=== PATIENT | female | born 1980 | race Native Hawaiian/Other Pacific Islander ===

== ENCOUNTER 2017-10-03 06:56 | Day surgery (SDC) | payer OTHER ==
[2017-09-27 11:31] VITALS: BMI 28.3
[2017-10-03 08:21] LABS: HEMOGLOBIN 12.2 g/dL (12.0-16.0); MEAN CELL VOLUME 88.7 fl (81.0-99.0); MEAN CORPUSCULAR HEMOGLOBIN 29.3 pg (27.0-31.0); RBC 4.18 Mil/uL (3.80-5.20); RED CELL DISTRIBUTION WIDTH 14.2 % (11.5-14.5); WHITE BLOOD COUNT 7.9 K/uL (4.8-10.8)
[2017-10-03] MEDS ORDERED: Rocuronium 10 mg/ml (5 ml) ONE (10:41)
[2017-10-03] MEDS ORDERED: ePHEDrine 50 mg/ml Inj ONE (10:41)
[2017-10-03] MEDS ORDERED: Propofol 10 mg/ml Inj (20 ML) ONE (10:41)
[2017-10-03] MEDS ORDERED: Succinylcholine 200 mg/10 ml Inj IV ONE (10:41)
[2017-10-03] MEDS ORDERED: Sevoflurane - Inhalation Anesthetic Liq (250 ml) ONE (12:28)
[2017-10-03] MEDS ORDERED: Midazolam 2 MG/2 ML VIAL ONE (12:55)
[2017-10-03] MEDS ORDERED: Lactated Ringer's 1,000 ML IV ONE ×4 (13:27→17:45)
[2017-10-03] MEDS ORDERED: Bupivacaine HCl 0.25% PF (30 ml) Inj IJ ONE ×3 (13:49→14:00)
[2017-10-03] MEDS ORDERED: Dexamethasone 4 mg/1 ml ONE (14:03)
[2017-10-03] MEDS ORDERED: Desflurane Inhalation Anesthetic Liq (240 ml) ONE (14:30)
[2017-10-03] MEDS ORDERED: Neostigmine 1:1000 (1 mg/ml) Inj ONE (15:04)
[2017-10-03] MEDS ORDERED: Ropivacaine 0.5% 30ML IV ONE (15:22)
[2017-10-03] MEDS ORDERED: HYDROmorphone 1 mg/ml ISec IVP PRN (15:44)
[2017-10-03] MEDS ORDERED: Oxycodone/Acetaminophen 5/325 mg Tab PO PRN (15:44)
[2017-10-03] MEDS ORDERED: Lactated Ringer's 1,000 ML IV SCH ×2 (15:45→16:30)
--- NOTE | 2017-10-03 16:47 | PCM.ANESB5 ---
Transverse Abdominis Block - Transverse Abdominis Plane Date of Procedure: 10/03/17 Anesthesiologist: Kristin Pre-Procedure Diagnosis: Endometriosis Post-Procedure Diagnosis: Same Procedure Performed: Transverse Abdominis Plane Nerve Block Left, Transverse Abdominis Plane Nerve Block Right - Procedure Transverse Abdominis Plane Nerve Block: The procedure was explained to the patient that it is for post-operative pain management and would be performed after surgery. Consent was obtained prior to surgery after a thorough discussion with the patient regarding the benefits and possible complications of transverse abdominis plane block. After the surgery had concluded and before the patient emerged from general anesthesia, time-out was held with the circulating nurse to re-confirm the appropriate block. With the patient in supine position, the ultrasound probe was placed transverse to the abdominal wall at the mid-axillary line above the iliac crest of the appropriate side. The skin, subcutaneous tissue, fat, external oblique muscle, internal oblique muscle, and the transverse abdominis muscle were identified. The general area of the block site was then prepped with Betadine three times. At this point, a # 21-gauge Stimuplex 4-inch needle was inserted posterior to and in plane with the ultrasound probe and directed anteriorly. Needle was advanced under direct ultrasound visualization until it reached the plane between the internal oblique and transverse abdominis muscles. After appropriate placement, 2mL of local anesthetic solution was injected. When the transverse abdominis plane was observed expanding in an ellipsoid way, the rest of the solution was slowly injected. A total of _30 mL of _0.25____ % ____ ropivicaine was used for this block. The needle was then removed and sterile dressing was applied. Similarly, the same procedure was performed on the other side using the same medications. The patient had stable vital signs throughout and had no untoward complications after emergence from general anesthesia in the recovery room.
[2017-10-03] MEDS: HYDROmorphone 0.5 mg/0.5 ml ISec IVP PRN ×2 (17:10→17:28)
[2017-10-03 19:01] VITALS: RESP 16
--- NOTE | 2017-10-03 19:17 | CP.PCM.PN ---
Subjective - Date & Time of Evaluation Date of Evaluation: 10/03/17 Time of Evaluation: 18:30 - Subjective Subjective: Anesthesia Note Called by Same Day, pt s/p robotic endometriosis resection now with desaturation (60s without O2, went up to 80s with NC 2L). Called to evaluate. Pt's other vitals WNL 102/62, [place] 72. Pt tired but awake, able to answer questions. Says chest feels "tight". Auscultation: left side clear but right side with crackles especially loud in the middle lobe region. Pt also has a cough that is not yet productive but sounds course and slightly phlegmy. Pt encouraged to take some deep breaths upon which her saturation increased to low 90s at most. Pt states she has no pulmonary hx, no hx of asthma, no hx of smoking, and that she did not have this cough prior to surgery. Desaturation may be due to a number of causes in this scenario ranging from atelectasis, to mucus plug, to hypoventilation (somnambulance) to even PE. Pt will need at the very least a CXR and possibly an ABG. Informed Dr Holt and decision made to send pt to ER for imaging and further studies. Objective - Vital Signs/Intake and Output Vital Signs (last 24 hours): Temp Pulse Resp BP Pulse Ox 97.1 F L 86 18 116/73 93 L 10/03/17 18:15 10/03/17 18:15 10/03/17 18:15 10/03/17 18:15 10/03/17 18:15 Intake and Output: 10/03/17 10/03/17 06:59 18:59 Intake Total 3700 Output Total 200 Balance 3500 - Medications Medications: Current Medications Hydromorphone HCl (Dilaudid) 2 mg IVP Q3H PRN PRN Reason: Pain, severe (8-10) Lactated Ringer's (Lactated Ringer's) 1,000 mls @ 100 mls/hr IV .Q10H GILBERT Lactated Ringer's (Lactated Ringer's) 1,000 mls @ 250 mls/hr IV .Q4H GILBERT Ketorolac Tromethamine (Toradol) 30 mg IVP Q6H GILBERT Ondansetron HCl (Zofran Inj) 4 mg IVP Q6 PRN PRN Reason: Nausea/Vomiting Oxycodone/Acetaminophen (Percocet 5/325 Mg Tab) 2 tab PO Q4H PRN PRN Reason: Pain, moderate (4-7) Stop: 10/06/17 15:45 - Labs Labs: 10/03/17 07:40
[2017-10-03 19:53] VITALS: BP 121/64; PULSE 77; TEMP 97.4; O2SAT 90
--- NOTE | 2017-10-12 11:36 | PCM.OP ---
Operative Report - Operative Report Date of Surgery/Procedure: 10/03/17 Time of Surgery/Procedure: 12:00 Surgeon: Dr. Enrrique Reyes Special Librarian: Dr. Jason Holt Anesthesia/Sedation: general/Dr. Kc Pre-Operative Diagnosis: abdominal pain and endometriosis Post-Operative Diagnosis: same Indication for Surgery: involvement of the rectum Operative Findings: as above Procedure/Operation Description: 1-Excision perirectal endometriosis. Brief History: This 36 year old woman was already brought to the operating room by Dr. Holt and the procedure had been initated when he noticed endometriosis invovlement of the rectum . Intraoperative consultation was obtained. Description of the procedure: The operation had already been intiated by Dr. Holt (separate dictation Dr. Holt). After taking control of the robotic console the lesion in question was circumscribed with electrocautery and excided en-bloc with blint and sharp disection while maintianing the integrity of the rectal wall. The lesion was appropriately marked and sent to pathology as a separate specimen. The operation was then turned over to Dr. Holt ( separate dictation). Estimated Blood Loss: 2 cc Complications: none Discharge & Condition: stable
--- NOTE | 2017-10-22 19:00 | OP ---
PROCEDURE DATE: 10/03/2017 SURGEON: Jason Holt M.D. CNC SERVICE ENGINEER: Enrrique Reyes M.D. from General Surgery. ANESTHESIA: General. ANESTHESIOLOGIST: Kenroy Foster MD PREOPERATIVE DIAGNOSES: 1. Incapaciting pelvic pain. 2. Incapacitating abdominal pain. 3. Abnormal uterine bleeding. 4. Suspected pelvic endometriosis. 5. History of previous failed medical and surgical therapies. 6. Gastrointestinal and genitourinary symptoms. 7. Rule out interstitial cystitis. 8. Myoma of the uterus. 9. Adenomyosis. POSTOPERATIVE DIAGNOSES: 1. Incapacitating pelvic pain. 2. Incapacitating abdominal pain. 3. Abnormal uterine bleeding. 4. Suspected pelvic endometriosis. 5. History of previous failed medical and surgical therapies. 6. Gastrointestinal and genitourinary symptoms. 7. Myoma of the uterus. 8. Adenomyosis. 9. Confirmed pelvic endometriosis stage III. OPERATION PERFORMED: 1. Examination under anesthesia. 2. Video-assisted hysteroscopy. 3. Cystoscopy with bilateral ureteral catheterization. 4. Robotic da Ernst operative laparoscopy. 5. Bilateral Robotic ureterolysis. 6. Excision of endometriosis with multiple peritoneal biopsies. 7. Myomectomy. 8. Hysteroscopy ANTIBIOTICS: Prophylactic antibiotics were used. INTAKE AND OUTPUT: Adequate. ESTIMATED BLOOD LOSS: Less than 100 mL. FINDINGS: Genitalia: normal, external genitalia cervix normal without lesions or polyps. Hysteroscopy : showed normal cavity without any evidence of polyps. Cystoscopy to rule out endometriosis of the bladder mucosa and also interstitial cystitis . Normal bladder. No evidence of stone, trigonitis or cystitis. Positive bilateral jet flow visualized. Bilateral ureteral catheterization with injection of dye performed. Laparoscopic upper abdomen was normal. Gallbladder was normal. Liver edges appeared to be normal. Ascending colon and transverse colon were normal. There were evidence of endometriosis in multiple areas of the pelvis including the left pelvic sidewall, the right pelvic sidewall, the posterior cervix, uterosacral ligaments, and both right and left perirectal spaces. Both fallopian tubes appeared to be normal. There were also inflammatory changes in the posterior aspect of the uterus, and there was also a posterior fibroid in the uterus. CONSENT: The patient had been thoroughly evaluated and counseled regarding the pros and cons of the procedure, the reasonable alternatives, and possible complications. She understands and accepts all the risks involved and appropriate literature was shared with the patient. The patient understands all the risks with regards to endometriosis surgery and accepted all the risks involved, and all the questions have been answered to her satisfaction. SAMPLES OBTAINED: 1.Left periureteral endometriosis, 2. posterior cervical endometriosis, 3. anterior rectal endometriosis, 4. left cul-de-sac endometriosis, 5.left pelvic side wall endometriosis, 6.left periurethral endometriosis, 7.right periurethral endometriosis, 8.right uterosacral endometriosis, 9.left cul-de-sac endometriosis 10. uterine fibroid. DESCRIPTION OF PROCEDURE: After adequate anesthesia was obtained, the patient was placed in the dorsal lithotomy position with extreme care not to hyperextend or hyperflex the hips. She was prepped and draped and the surgeons were gowned and gloved. At this point, a time-out was taken according to the hospital policy and the procedure was started. At this point we performed the cystoscopy cystoscope was inserted into the bladder under direct visualization and the bladder was visualized, appearing to be free of stones, any lesions, trigonitis or endometriosis of the bladder or interstitial cystitis. At this point we performed the ureteral stenting and injection of dye. Both ureteral ostia were in the normal anatomical position. At this point, the left ureter was catheterized using a 5-Swiss open-ended catheter all the way to the distal ureter and 5 mL of IC-Green were injected. The catheter was removed and then the contralateral ureter was then cannulated with a 5-Swiss open-ended catheter and 5 mL of IC-Green were injected. At this point, the cystoscope was removed. At this point we performed h the Hysteroscopy A speculum was placed in the vagina. The anterior lip of the cervix was grasped and the cervix was dilated. The uterine cavity appeared to be normal in size with no evidence of endometritis or adenomyosis changes and no other abnormalities were seen. At this point we started the Robotic Laparoscopy At this point, after re-gowning and re-gloving, the attention was on the abdominal part, where an open laparoscopy was performed by making an incision and entering the fascia in a sharp fashion, and the peritoneum in a blunt fashion, a cannula was then inserted, the abdomen was insufflated. Under direct visualization, three additional ports were inserted, left upper quadrant, left mid quadrant, and right upper quadrant. At this point, the da Ernst Xi robot was brought into the field and docked and the procedure was commenced. As per description above, multiple areas of endometriosis were identified. There was also a fibroid in the posterior aspect of the uterus. At this point we started the excision of endometriosis and bilateral ureterolysis. At this point, attention was on the left hand side where the ovary was elevated, and evidence of endometriosis was visible on the left pelvic side wall. Fluorescence technology was used to visualize the ureter, the retroperitoneal space was entered and with great care the ureter was identified and lateralized and the peritoneum medialized, and a [id number] excision was performed dissecting the peritoneum from the left pelvic side wall. A large area of peritoneum containing endometriosis was then excised. At this point, attention was on the ovarian fossa where after identifying the uterine vessels, the peritoneum was grasped and again an area of peritoneum was progressively dissected in the [id number] fashion containing endometriosis, and dissected off the operative level of excision being the utero-ovarian ligament and all the way down to the left utero-sacral ligament. The sample was sent to Pathology. The dissection continuing the posterior aspect of the cervix where after dissecting the peritoneum posterior aspect of the cervix, a full dissection was performed and then entering the vascular space of the rectovaginal space. An area of peritoneum was then was excised from the left cul-de-sac. At this point, attention was on the right hand side, where after elevating the ovary. Again, the ureter was identified. The peritoneum was entered in a sharp fashion, and a progressive dissection was performed, lateralizing the ureter and dissecting in a [id number] fashion, dissecting the peritoneum containing endometriosis and lysing the right ureter. Again, the right ovarian fossa was then approached with a full dissection of peritoneum, going from the right utero-ovarian ligament all the way down to the right utero-sacra. There was an area of suspicious endometriosis by the perirectal area, and from General Surgery was asked to excise that, and he will dictate that procedure separately. At this point, attention was on the posterior aspect of the uterus where the fibroid was identified. It was pedunculated fibroid, so after placing an Endoloop around it, the base of the fibroid was excised and the fibroid was removed and sent to pathology through a 12 mm port. At this point, it was checked for hemostasis, there appeared to be excellent, and all the areas suspicious of endometriosis were fully excised, and there were some areas of inflammation in the posterior aspect of the uterus, which were not endometriosis, just inflammatory changes, and the peritoneum in that area was vaporized utilizing the J-Plasma device. After this was done, it was checked for hemostasis, there appeared to be excellent. At this point, the da Ernst robot was undocked. The abdomen was desufflated. The instruments were removed. The incisions were closed with 0 PDS for the fascia and 4-0 Monocryl for the skin. At the end of the procedure, all tapes and instrument counts were correct. The patient tolerated the procedure well, was taken to the recovery room in excellent condition. Jason Holt MD MTDKaroline
== END 2017-10-03 19:30 | disposition still patient (30) ==
LOC: H.OPSURG 06:56
PROVIDERS: ATTEND Obstetrics & Gynecology Reproductive Endocrinology
DX: N80.0 Endometriosis of uterus (principal); E11.9 Type 2 diabetes mellitus without complications; E03.9 Hypothyroidism, unspecified; N80.5 Endometriosis of intestine; D25.9 Leiomyoma of uterus, unspecified
CPT/HCPCS: 36415; 45171; 58558; 58662; 64488; 82948; 85027; 86850; 86900; 88305; C1729; J0131; J0330; J0690; J1100; J1170; J1885; J2001; J2250; J2405; J2704; J2710; J2765; J3010; J7030; J7040; J7120

== ENCOUNTER 2017-10-03 20:02 | Observation (INO) | payer OTHER ==
[2017-10-03 20:02] VITALS: BMI 28.3
[2017-10-03 20:58] LABS: BASO % 0.1 % (0.0-2.0); LYMPH # 0.7 K/uL (1.0-4.3); LYMPH % 5.3 % (20.0-40.0); MEAN CELL VOLUME 88.9 fl (81.0-99.0); MEAN CORPUSCULAR HGB CONC 32.6 g/dL (33.0-37.0); MEAN PLATELET VOLUME 9.4 fl (7.2-11.7); MONO # 0.1 K/uL (0.0-0.8); MONO % 0.8 % (0.0-10.0); NEUT # 13.3 K/uL (1.8-7.0); NEUT % 93.8 % (50.0-75.0); PLATELET COUNT 201 K/uL (130-400); RBC 3.81 Mil/uL (3.80-5.20); RED CELL DISTRIBUTION WIDTH 14.1 % (11.5-14.5); WHITE BLOOD COUNT 14.1 K/uL (4.8-10.8)
[2017-10-03 21:07] LABS: ALB/GLOB RATIO 1.2 (1.0-2.1); ALBUMIN 3.4 g/dL (3.5-5.0); ALT/SGPT 35 U/L (9-52); AST/SGOT 27 U/L (14-36); BLOOD UREA NITROGEN 7 mg/dl (7-17); CALCIUM 7.9 mg/dL (8.4-10.2); GFR AFRICAN-AMERICAN > 60; GFR NON-AFRICAN AMERICAN > 60
[2017-10-03 21:11] LABS: INR 1.1 (0.9-1.2); PARTIAL THROMBOPLASTIN TIME 29.8 Seconds (25.6-37.1)
[2017-10-03 21:19] LABS: B-TYPE NATRIURETIC PEPTIDE 153 pg/ml (0-450)
[2017-10-03] MEDS ORDERED: Morphine 4 MG/ML VIAL IVP STA (21:32)
[2017-10-03] MEDS ORDERED: Morphine 4 MG/ML VIAL ONE (21:34)
[2017-10-03 21:40] LABS: BANDS 1 % (0-2); LYMPHOCYTE 6 % (20-50); MONOCYTE 4 % (0-10); NEUTROPHIL 89 % (42-75); TOTAL CELLS COUNTED 100
[2017-10-03 21:41] LABS: ANISOCYTOSIS SLIGHT; HYPOCHROMIC SLIGHT; PLATELET ESTIMATE NORMAL (NORMAL); TOXIC GRANULATION PRESENT
--- NOTE | 2017-10-03 21:43 | ED PDOC ---
HPI: SOB/CHF/COPD Time Seen by Provider: 10/03/17 20:13 Chief Complaint (Nursing): Shortness Of Breath Chief Complaint (Provider): shortness of breath History Per: Patient History/Exam Limitations: no limitations Onset/Duration Of Symptoms: Hrs (3), Persistent Additional Complaint(s): Post op gynecological surgery and while in PACU became hypoxic with mild shortness of breath. Mild cough nonproductive. Currently reports mild abdominal pain. Past Medical History Reviewed: Historical Data, Nursing Documentation, Vital Signs Vital Signs: Last Vital Signs Temp 98 F 10/04/17 00:06 Pulse 88 10/04/17 00:06 Resp 18 10/04/17 00:06 BP 105/68 10/04/17 00:06 Pulse Ox 94 L 10/04/17 00:06 - Medical History PMH: Hypothyroidism Denies: Asthma, Chronic Kidney Disease - Surgical History Other surgeries: Endometriosis - Family History Family History: States: No Known Family Hx - Social History Current smoker - smoking cessation education provided: No - Home Medications Home Medications: Ambulatory Orders Medication Instructions Recorded Vit Calc,Iron,Folic 1 tab PO DAILY 09/27/17 [ Vitamins] metFORMIN [glucOPHAGE] 500 mg PO QID 09/27/17 - Allergies Allergies/Adverse Reactions: Allergies Allergy/AdvReac Type Severity Reaction Status Date / Time No Known Allergies Allergy Verified 10/03/17 20:04 Review of Systems ROS Statement: Except As Marked, All Systems Reviewed And Found Negative (and as per HPI) Constitutional: Positive for: Weakness Respiratory: Positive for: Cough, Shortness of Breath Gastrointestinal: Positive for: Abdominal Pain Physical Exam - Reviewed Nursing Documentation Reviewed: Yes Vital Signs Reviewed: Yes - Physical Exam Appears: Positive for: Non-toxic, No Acute Distress (but tired appearing) Head Exam: Positive for: ATRAUMATIC, NORMOCEPHALIC Skin: Positive for: Warm, Dry, Pallor Eye Exam: Positive for: EOMI, PERRL ENT: Positive for: Pharynx Is (clear) Neck: Positive for: Painless ROM, Supple Cardiovascular/Chest: Positive for: Regular Rate, Rhythm. Negative for: Murmur Respiratory: Positive for: Rales (RIGHT sided). Negative for: Accessory Muscle Use, Wheezing, Respiratory Distress Gastrointestinal/Abdominal: Positive for: Soft. Negative for: Distended Back: Positive for: Normal Inspection. Negative for: Decreased ROM Extremity: Positive for: Normal ROM. Negative for: Deformity Lymphatic: Negative for: Adenopathy Neurologic/Psych: Positive for: Alert. Negative for: Motor/Sensory Deficits - Laboratory Results Result Diagrams: 10/03/17 20:42 10/03/17 20:42 - ECG ECG: Positive for: Interpreted By Me ECG Rhythm: Positive for: Normal QRS (but low voltage), Normal ST Segment, Sinus Rhythm O2 Sat by Pulse Oximetry: 94 Pulse Ox Interpretation: Abnormal (4L NC applied with improvement to 96) - Radiology X-Ray Interpretation: Other (interstitial markings RIGHT side) - Progress ED Course And Treament: JIMI Holt Wildlife Forensic Geneticist, Dr Lynne for admission, and pt and family findings and plan of care. Disposition - Clinical Impression Clinical Impression: Fluid overload - Disposition Disposition Time: 21:00 Condition: FAIR - Pt Status Changed To: Hospital Disposition Of: Observation - POA Present On Arrival: None
--- NOTE | 2017-10-04 00:55 | CP.PCM.HP ---
History of Present Illness - History of Present Illness History of Present Illness: Anesthiologist: Dr Arriaza Chief Complaint: SOB The patient was seen and evaluated On the Telemetry Unit HPI: The Hx is obtained from the Patient and after review of the medical records. 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 absent: Chills, Fever, Lethargy - EENT Eyes: Requires Corrective Lenses. absent: Blurred Vision, Diplopia, Floaters, Loss of Peripheral Vision Ears: absent: Decreased Hearing, Ear Discharge, Tinnitus Nose/Mouth/Throat: absent: Epistaxis, Nasal Congestion, Sinus Pain, Sinus Pressure - Cardiovascular Cardiovascular: Dyspnea. absent: Chest Pain, Edema, Leg Edema - Respiratory Respiratory: Cough, Dyspnea. absent: Wheezing - Gastrointestinal Gastrointestinal: Abdominal Pain. absent: Constipation, Diarrhea, Nausea, Vomiting - Genitourinary Genitourinary: absent: Dysuria, Urinary Frequency - Musculoskeletal Musculoskeletal: absent: Arthralgias, Muscle Weakness - Integumentary Integumentary: absent: Pruritus, Rash, Skin Ulcer, Sores, Striae, Swelling - Neurological Neurological: absent: Confusion, Focal Weakness, Loss of Vision, Weakness - Psychiatric Psychiatric: absent: Anxiety, Depression, Panic Attacks - Endocrine Endocrine: absent: Palpitations, Polydipsia, Polyphagia, Polyuria - Hematologic/Lymphatic Hematologic: absent: Easy Bleeding, Easy Bruising Past Patient History - Past Medical History & Family History Past Medical History?: Yes - Past Social History Smoking Status: Former Smoker Chewing Tobacco Use: No Cigar Use: No Alcohol: Occasional Drugs: Denies, Inhalants Home Situation {Lives}: With Family - CARDIAC Hx Cardiac Disorders: No - PULMONARY Hx Asthma: No - NEUROLOGICAL Hx Neurological Disorder: No - HEENT Hx HEENT Problems: No - RENAL Hx Chronic Kidney Disease: No - ENDOCRINE/METABOLIC Hx Diabetes Mellitus Type 1: Yes Hx Hypothyroidism: Yes - HEMATOLOGICAL/ONCOLOGICAL Hx Blood Disorders: No Hx AIDS: No Hx Human Immunodeficiency Virus (HIV): No - INTEGUMENTARY Hx Dermatological Problems: No - MUSCULOSKELETAL/RHEUMATOLOGICAL Hx Musculoskeletal Disorders: No Hx Falls: No - GASTROINTESTINAL Hx Gastrointestinal Disorders: No - GENITOURINARY/GYNECOLOGICAL Hx Genitourinary Disorders: No - PSYCHIATRIC Hx Psychophysiologic Disorder: No Hx Substance Use: No - SURGICAL HISTORY Hx Surgeries: Yes Other/Comment: laparoscopy-endometriosis - ANESTHESIA Hx Anesthesia: Yes Hx Anesthesia Reactions: No Meds Allergies/Adverse Reactions: Allergies Allergy/AdvReac Type Severity Reaction Status Date / Time No Known Allergies Allergy Verified 10/03/17 20:04 Physical Exam - Constitutional Appears: No Acute Distress - Head Exam Head Exam: ATRAUMATIC, NORMAL INSPECTION, NORMOCEPHALIC - Eye Exam Eye Exam: EOMI, Normal appearance Pupil Exam: NORMAL ACCOMODATION, PERRL - ENT Exam ENT Exam: Mucous Membranes Moist, Normal Exam - Neck Exam Neck exam: Positive for: Full Rom, Normal Inspection. Negative for: Lymphadenopathy, Tenderness - Respiratory Exam Respiratory Exam: absent: Rhonchi, Wheezes Additional comments: Mild diffuse rales at both bases - Cardiovascular Exam Cardiovascular Exam: REGULAR RHYTHM, +S1, +S2. absent: Gallop - GI/Abdominal Exam Additional comments: Sofr , Decreased bowel sounds. Mild post surgical tenderness in whole abdomen, no guarding Results - Vital Signs Recent Vital Signs: Last Vital Signs Temp 98 F 10/04/17 00:06 Pulse 88 10/04/17 00:17 Resp 18 10/04/17 00:17 BP 105/68 10/04/17 00:06 Pulse Ox 94 L 10/04/17 00:26 - Labs Result Diagrams: 10/04/17 05:05 10/03/17 20:42 Labs: Laboratory Results - last 24 hr 10/03/17 10/03/17 10/03/17 20:42 20:42 20:42 WBC 14.1 H D RBC 3.81 Hgb 11.0 L Hct 33.8 L MCV 88.9 MCH 29.0 MCHC 32.6 L RDW 14.1 Plt Count 201 MPV 9.4 Neut % (Auto) 93.8 H Lymph % (Auto) 5.3 L [place] % (Auto) 0.8 Eos % (Auto) 0.0 Baso % (Auto) 0.1 Neut # (Auto) 13.3 H Lymph # (Auto) 0.7 L [place] # (Auto) 0.1 Eos # (Auto) 0.0 Baso # (Auto) 0.0 Neutrophils % (Manual) 89 H Band Neutrophils % 1 Lymphocytes % (Manual) 6 L Monocytes % (Manual) 4 Toxic Granulation Present Platelet Estimate Normal Hypochromasia (manual) Slight Anisocytosis (manual) Slight PT 12.0 INR 1.1 APTT 29.8 Sodium 136 Potassium 3.8 Chloride 102 Carbon Dioxide 27 Anion Gap 11 BUN 7 Creatinine 0.4 L Est GFR ( Amer) > 60 Est GFR (Non-Af Amer) > 60 Random Glucose 122 H Calcium 7.9 L Phosphorus 3.2 Magnesium 1.5 L Total Bilirubin 0.7 AST 27 ALT 35 Alkaline Phosphatase 62 Troponin I < 0.0120 NT-Pro-B Natriuret Pep 153 Total Protein 6.4 Albumin 3.4 L Globulin 3.0 Albumin/Globulin Ratio 1.2 - EKG Data EKG comments: NSR 90/min - Imaging and Cardiology Chest x-ray Status: Image reviewed by me, Report reviewed by me Additional comment: Mild interstitisl ingiltrate ,right > left Assessment & Plan - Assessment and Plan (Free Text) Assessment: #. Post Surgery Hypoxemia #. Endometriosis s/p Endometriosis resection #. Leukocytosis #. Elevated Blood Glucose #. hypothyroidism Plan: Called by Same Day, pt s/p robotic endometriosis resection now with desaturation (60s without O2, went up to 80s with NC 2L). Called to evaluate. Pt's other vitals WNL 102/62, [place] 72. Pt tired but awake, able to answer questions. Says chest feels "tight". Auscultation: left side clear but right side with crackles especially loud in the middle lobe region. Pt also has a cough that is not yet productive but sounds course and slightly phlegmy. Pt encouraged to take some deep breaths upon which her saturation increased to low 90s at most. Pt states she has no pulmonary hx, no hx of asthma, no hx of smoking, and that she did not have this cough prior to surgery. #. Post Surgery Hypoxemia probably secondary to volume overload, pneumonitis less likely - Oxygen via nasal canal to maintain SpO2>94% - IV lasix - Follow repeat CXR #. Endometriosis s/p Endometriosis resection - Follow up with Dr bell #. Leukocytosis probably reactive - follow WBC #. Elevated Blood Glucose - Follow Blood Glucose #. DVT prophylaxis with Lovenox and SCD -#. code Status: Full - Date & Time Date: 10/04/17 Time: 00:55
[2017-10-04 05:39] LABS: BASO % 0.2 % (0.0-2.0); HEMOGLOBIN 10.3 g/dL (12.0-16.0); LYMPH # 1.2 K/uL (1.0-4.3); LYMPH % 10.1 % (20.0-40.0); MEAN CELL VOLUME 87.9 fl (81.0-99.0); MEAN CORPUSCULAR HEMOGLOBIN 28.5 pg (27.0-31.0); MEAN CORPUSCULAR HGB CONC 32.4 g/dL (33.0-37.0); MEAN PLATELET VOLUME 9.1 fl (7.2-11.7); MONO # 0.6 K/uL (0.0-0.8); MONO % 4.9 % (0.0-10.0); NEUT # 10.5 K/uL (1.8-7.0); NEUT % 84.8 % (50.0-75.0); RBC 3.6 Mil/uL (3.80-5.20); WHITE BLOOD COUNT 12.4 K/uL (4.8-10.8)
[2017-10-04] MEDS: Insulin Lispro (humaLOG) 100 Units/ml Inj SC SCH ×2 (06:36→12:06)
--- NOTE | 2017-10-04 07:49 | RAD ---
HISTORY: RIGHT sided rales COMPARISON: No prior. FINDINGS: LUNGS: Limited patchy density is developing but appears subtly at the right greater than left pulmonary upper lung zones. PLEURA: No significant pleural effusion identified, no pneumothorax apparent. CARDIOVASCULAR: Normal. OSSEOUS STRUCTURES: No significant abnormalities. VISUALIZED UPPER ABDOMEN: Normal. OTHER FINDINGS: None. IMPRESSION: Early infiltrates are suspected developing at the upper lung zones bilaterally, right greater than left with remainder of the examination unremarkable.
[2017-10-04 07:59] VITALS: RESP 20; O2SAT 95
[2017-10-04] MEDS ORDERED: Enoxaparin 40 mg Syringe SC SCH (09:00)
[2017-10-04] MEDS ORDERED: Pneumococcal 23-Valent Vaccine IM ONE (10:32)
--- NOTE | 2017-10-04 10:45 | RAD ---
HISTORY: SOB r/o Pneumonia COMPARISON: Portable chest 10/03/2017. TECHNIQUE: Chest PA and lateral FINDINGS: LUNGS: Prior pattern of questioned early infiltrates the right greater than left upper lung zones is not identified currently. The prior pattern may have been artifact related to hair or other extra thoracic density. PLEURA: No significant pleural effusion identified. No pneumothorax apparent. CARDIOVASCULAR: Normal. OSSEOUS STRUCTURES: No significant abnormalities. VISUALIZED UPPER ABDOMEN: Normal. OTHER FINDINGS: None. IMPRESSION: No acute cardiopulmonary disease. Prior findings may have been artifactual. Please see discussion above.
--- NOTE | 2017-10-04 11:08 | CARD ---
APPROVED REPORT EKG Measurement Heart [id number] <Conclusion> Normal sinus rhythm Low voltage QRS Borderline ECG
--- NOTE | 2017-10-04 11:58 | CP.PCM.DIS ---
Provider - Provider Date of Admission: 10/03/17 21:41 Attending physician: Tal Lynne Time Spent in preparation of Discharge (in minutes): 25 Diagnosis - Discharge Diagnosis (1) Postoperative hypoxemia Status: Acute (2) Endometriosis Status: Chronic Hospital Course - Lab Results Lab Results: Most Recent Lab Values WBC 12.4 K/uL (4.8-10.8) H 10/04/17 05:05 RBC 3.60 Mil/uL (3.80-5.20) L 10/04/17 05:05 Hgb 10.3 g/dL (12.0-16.0) L 10/04/17 05:05 Hct 31.6 % (34.0-47.0) L 10/04/17 05:05 MCV 87.9 fl (81.0-99.0) 10/04/17 05:05 MCH 28.5 pg (27.0-31.0) 10/04/17 05:05 MCHC 32.4 g/dL (33.0-37.0) L 10/04/17 05:05 RDW 14.0 % (11.5-14.5) 10/04/17 05:05 Plt Count 211 K/uL (130-400) 10/04/17 05:05 MPV 9.1 fl (7.2-11.7) 10/04/17 05:05 Neut % (Auto) 84.8 % (50.0-75.0) H 10/04/17 05:05 Lymph % (Auto) 10.1 % (20.0-40.0) L 10/04/17 05:05 [place] % (Auto) 4.9 % (0.0-10.0) 10/04/17 05:05 Eos % (Auto) 0.0 % (0.0-4.0) 10/04/17 05:05 Baso % (Auto) 0.2 % (0.0-2.0) 10/04/17 05:05 Neut # (Auto) 10.5 K/uL (1.8-7.0) H 10/04/17 05:05 Lymph # (Auto) 1.2 K/uL (1.0-4.3) 10/04/17 05:05 [place] # (Auto) 0.6 K/uL (0.0-0.8) 10/04/17 05:05 Eos # (Auto) 0.0 K/uL (0.0-0.7) 10/04/17 05:05 Baso # (Auto) 0.0 K/uL (0.0-0.2) 10/04/17 05:05 Neutrophils % (Manual) 89 % (42-75) H 10/03/17 20:42 Band Neutrophils % 1 % (0-2) 10/03/17 20:42 Lymphocytes % (Manual) 6 % (20-50) L 10/03/17 20:42 Monocytes % (Manual) 4 % (0-10) 10/03/17 20:42 Toxic Granulation Present 10/03/17 20:42 Platelet Estimate Normal (NORMAL) 10/03/17 20:42 Hypochromasia (manual) Slight 10/03/17 20:42 Anisocytosis (manual) Slight 10/03/17 20:42 PT 12.0 Seconds (9.8-13.1) 10/03/17 20:42 INR 1.1 (0.9-1.2) 10/03/17 20:42 APTT 29.8 Seconds (25.6-37.1) 10/03/17 20:42 Sodium 136 mmol/l (132-148) 10/03/17 20:42 Potassium 3.8 MMOL/L (3.6-5.0) 10/03/17 20:42 Chloride 102 mmol/L (98-107) 10/03/17 20:42 Carbon Dioxide 27 mmol/L (22-30) 10/03/17 20:42 Anion Gap 11 (10-20) 10/03/17 20:42 BUN 7 mg/dl (7-17) 10/03/17 20:42 Creatinine 0.4 mg/dl (0.7-1.2) L 10/03/17 20:42 Est GFR ( Amer) > 60 10/03/17 20:42 Est GFR (Non-Af Amer) > 60 10/03/17 20:42 POC Glucose (mg/dL) 116 mg/dL (65-110) H 10/04/17 11:21 Random Glucose 122 mg/dL (65-105) H 10/03/17 20:42 Calcium 7.9 mg/dL (8.4-10.2) L 10/03/17 20:42 Phosphorus 3.2 mg/dl (2.5-4.5) 10/03/17 20:42 Magnesium 1.5 MG/DL (1.6-2.3) L 10/03/17 20:42 Total Bilirubin 0.7 mg/dl (0.2-1.3) 10/03/17 20:42 AST 27 U/L (14-36) 10/03/17 20:42 ALT 35 U/L (9-52) 10/03/17 20:42 Alkaline Phosphatase 62 U/L (38-126) 10/03/17 20:42 Troponin I < 0.0120 ng/mL (0.00-0.120) 10/03/17 20:42 NT-Pro-B Natriuret Pep 451 pg/ml (0-450) H 10/04/17 05:05 Total Protein 6.4 G/DL (6.3-8.2) 10/03/17 20:42 Albumin 3.4 g/dL (3.5-5.0) L 10/03/17 20:42 Globulin 3.0 gm/dL (2.2-3.9) 10/03/17 20:42 Albumin/Globulin Ratio 1.2 (1.0-2.1) 10/03/17 20:42 - Hospital Course Hospital Course: 36 y/o lady with hx of Endometriosis , Had Davinci Laparoscopic Endometriosis Surgery 10/03 , post op , while in the SDS unit , was noted to desaturate into the 80's . Pt's other vitals WNL 102/62, [place] 72, awake and able to answer questions. She had a sl cough and when encouraged to take some deep breaths upon which her saturation increased to low 90s. Pt has no pulmonary hx, no hx of asthma, no hx of smoking, and that she did not have this cough prior to surgery. She was observed in Telemetry overnight. Started on Oxygen per NC . CXR : early infiltrates upper lung zones. She received a dose of 20mg IV Lasix. Overnight , the patient's condition improved , her saturation went up to 98% on Room Air. CXR repeated : No infiltrates. 1. Post-op Hypoxemia unclear etiology may be sec to Anesthesia effect , incombination with Opiates , cannot r/o a slight fluid overload. - Oxygen via nasal cannula - IV lasix 20mg x 1 - Pt improved , Oxygen sat even after walking 98% on RA 2. Endometriosis s/p Davinci Lap Surgery - Follow up with Dr Holt 3. Leukocytosis probably reactive, improved #. DVT prophylaxis with Lovenox and SCD Discharge Exam - Head Exam Head Exam: ATRAUMATIC, NORMAL INSPECTION, NORMOCEPHALIC - Eye Exam Eye Exam: EOMI, Normal appearance, PERRL Pupil Exam: NORMAL ACCOMODATION - ENT Exam ENT Exam: Mucous Membranes Moist, Normal External Ear Exam - Neck Exam Neck exam: Full Rom - Respiratory Exam Respiratory Exam: NORMAL BREATHING PATTERN. absent: Respiratory Distress - Cardiovascular Exam Cardiovascular Exam: REGULAR RHYTHM, +S1, +S2 - GI/Abdominal Exam GI & Abdominal Exam: Normal Bowel Sounds, Soft, Tenderness (mild tenderness) - Extremities Exam Extremities exam: full ROM, normal capillary refill, normal inspection, pedal pulses present - Back Exam Back exam: FULL ROM. absent: CVA tenderness (L), CVA tenderness (R) - Neurological Exam Neurological exam: Alert, CN II-XII Intact, Normal Gait, Oriented x3, Reflexes Normal - Psychiatric Exam Psychiatric exam: Normal Affect, Normal Mood - Skin Skin Exam: Dry, Normal Color, Warm Discharge Plan - Follow Up Plan Condition: GOOD Disposition: HOME/ ROUTINE Instructions: Endometriosis, Prediabetes Additional Instructions: follow up up with Jason Bar ([employer] MACHINE OPERATOR) as scheduled follow up with PMD dennys Referrals: Jason Holt [Medical Doctor] -
[2017-10-04 12:16] VITALS: BP 101/67; PULSE 95; TEMP 98.6
== END 2017-10-04 12:35 | disposition home or self-care (01) ==
LOC: H.ER 20:02 → H.ERHOLD 21:41 → H.TEL 23:48
PROVIDERS: ADMIT Internal Medicine; ATTEND Internal Medicine
DX: R09.02 Hypoxemia (principal); E87.79 Other fluid overload; Z98.890 Other specified postprocedural states; D72.828 Other elevated white blood cell count; E10.65 Type 1 diabetes mellitus with hyperglycemia; E03.9 Hypothyroidism, unspecified; E78.5 Hyperlipidemia, unspecified; I10 Essential (primary) hypertension; Z79.4 Long term (current) use of insulin; Z87.891 Personal history of nicotine dependence; Z79.84 Long term (current) use of oral hypoglycemic drugs
CPT/HCPCS: 36415; 71045; 71046; 80053; 82948; 83735; 83880; 84100; 84484; 85025; 85610; 85730; 87040; 93005; 96374; 99282; G0378; J1940; J2270; J2405